=== PATIENT | male | born 1975 | race Caucasian/White ===

== ENCOUNTER 2018-12-08 23:41 | Emergency (ER) | payer SELFPAY ==
[2018-12-08] MEDS ORDERED: ASPIRIN 81 MG CHEWABLE TABLET ONE (23:56)
[2018-12-08] MEDS ORDERED: ONDANSETRON 4 MG/2 ML VIAL ONE (23:56)
[2018-12-09 00:12] LABS: Absolute Lymphocytes (CBC) 1.8 K/uL (0.7-4.9); Basophils % 0.5 % (0-1.3); Hematocrit 49.8 % (39.6-49.0); Lymphocytes % 27.1 % (15.3-44.8); MPV 9.5 fL (7.6-11.3); Protime INR 0.82; RBC Red Blood Cell Count 5.61 M/uL (4.33-5.43)
[2018-12-09 00:37] LABS: Urine Blood 2+ (NEG); Urine Glucose NEGATIVE (NEG); Urine Protein NEGATIVE (NEG)
[2018-12-09 00:59] LABS: ALT/SGPT 26 U/L (12-78); AST/SGOT 22 U/L (15-37); Albumin 3.6 g/dL (3.4-5.0); Alkaline Phosphatase 78 U/L (45-117); BUN Blood Urea Nitrogen 16 mg/dL (7-18); Bicarbonate 29 mmol/L (21-32); Bilirubin Direct < 0.1 mg/dL (0-0.2); Bilirubin Total 0.3 mg/dL (0.2-1.0); Glucose Level 89 mg/dL (74-106); Magnesium 2.2 mg/dL (1.8-2.4); NT PRO-BNP 221 pg/mL (<125); Potassium 4.2 mmol/L (3.5-5.1); Protein, Total 7.2 g/dL (6.4-8.2); Sodium Level 140 mmol/L (136-145); Troponin (Emerg Dept Use Only) < 0.02 ng/mL (0.0-0.045)
[2018-12-09] MEDS ORDERED: NA CHLORIDE 0.9% 1,000 ML ONE (01:28)
[2018-12-09] MEDS ORDERED: KETOROLAC 30 MG/ML INJ ONE (01:28)
[2018-12-09 02:08] LABS: Barbiturates NEGATIVE (NEGATIVE); Benzodiazepines NEGATIVE (NEGATIVE); Cocaine NEGATIVE (NEGATIVE); METHAMPHETAM POSITIVE (NEGATIVE); Methadone NEGATIVE (NEGATIVE); Opiates NEGATIVE (NEGATIVE); Phencyclidine NEGATIVE (NEGATIVE); THC Cannibis NEGATIVE (NEGATIVE)
--- NOTE | 2018-12-09 03:31 | EDPHYS ---
Physician Documentation [facility] Name: Peterson Ennis Age: 43 yrs Sex: Male : 1975 Arrival Date: 12/08/2018 Time: 23:42 Bed 16 Private MD: ED Physician Leo Gee HPI: 12/08 23:50 This 43 yrs old Male presents to ER via EMS with complaints of Anxiety. cp 23:50 The patient or guardian reports chest pain that is located primarily in the anterior cp chest wall, left. 23:50 Onset: today, at 22:00. The pain does not radiate. Associated signs and symptoms: cp Pertinent negatives: abdominal pain, cough, diaphoresis, dizziness, headache, lower extremity pain, lower extremity swelling, shortness of breath, syncope. The chest pain is described as a pressure. Duration: The patient or guardian reports multiple episodes, that are intermittent. Severity of pain: in the emergency department the pain has improved moderately. Historical: - Allergies: 23:35 No Known Allergies; jb4 - Home Meds: 23:35 None [Active]; jb4 - PMHx: 23:35 Anxiety; jb4 - PSHx: 23:35 None; jb4 - Immunization history:: Adult Immunizations up to date. - Social history:: Smoking status: Patient uses tobacco products, 2-3 cigarettes per day. - Ebola Screening: : No symptoms or risks identified at this time. ROS: 23:53 Constitutional: Negative for fever, poor PO intake. cp 23:53 Eyes: Negative for injury, pain, redness, and discharge. cp 23:53 ENT: Negative for drainage from ear(s), ear pain, sore throat, difficulty swallowing, difficulty handling secretions. 23:53 Cardiovascular: Positive for chest pain, Negative for edema, palpitations. 23:53 Respiratory: Negative for cough, shortness of breath, wheezing. 23:53 Abdomen/GI: Negative for abdominal pain, nausea, vomiting, and diarrhea, constipation, black/tarry stool, rectal bleeding. 23:53 Back: Negative for radiated pain. 23:53 Neuro: Negative for altered mental status, headache, numbness, syncope, weakness. 23:53 All other systems are negative. Exam: 23:55 ECG was reviewed by the Attending Physician. cp 23:58 Constitutional: The patient appears in no acute distress, alert, awake, cp non-diaphoretic, non-toxic, well developed, well nourished. 23:58 Head/Face: Normocephalic, atraumatic. cp 23:58 Eyes: Periorbital structures: appear normal, Conjunctiva: normal, no exudate, no injection, Lids and lashes: appear normal, bilaterally. 23:58 ENT: External ear(s): are unremarkable, Nose: is normal, Mouth: Lips: moist, Oral mucosa: pink and intact, moist, Posterior pharynx: is normal, airway is patent, no erythema, no exudate. 23:58 Chest/axilla: Inspection: normal, Palpation: is normal, no crepitus, no tenderness. 23:58 Cardiovascular: Rate: normal, Rhythm: regular, Pulses: Pulses are 2+ in right radial artery and left radial artery. Edema: is not appreciated, JVD: is not appreciated. 23:58 Respiratory: the patient does not display signs of respiratory distress, Respirations: cp normal, no use of accessory muscles, no retractions, no splinting, no tachypnea, labored breathing, is not present, Breath sounds: are clear throughout, no decreased breath sounds, no stridor, no wheezing. 23:58 Abdomen/GI: Inspection: abdomen appears normal, Bowel sounds: active, all quadrants, cp Palpation: abdomen is soft and non-tender, in all quadrants, rebound tenderness, is not appreciated, involuntary guarding, is not appreciated. 23:58 Back: pain, is absent, ROM is normal. 23:58 Skin: no rash present. 23:58 Neuro: Orientation: to person, place \T\ time. Mentation: is normal, Motor: moves all fours, strength is normal, Sensation: no obvious gross deficits. 12/09 03:06 ECG was reviewed by the Attending Physician. cp Vital Signs: 12/08 23:35 BP 154 / 103; Pulse 86; Resp 18; Temp 99.0(O); Pulse Ox 98% on R/A; Weight 83.91 kg jb4 (R); Height 5 ft. 10 in. (177.80 cm) (R); Pain 6/10; 12/09 00:30 BP 145 / 100; Pulse 73; Resp 19; Pulse Ox 96% on R/A; jb4 02:00 BP 142 / 104; Pulse 62; Resp 16; Pulse Ox 100% on R/A; jb4 02:45 BP 143 / 104; Pulse 67; Resp 16; Pulse Ox 100% on R/A; jb4 03:38 BP 154 / 91; Pulse 88; Resp 16; Pulse Ox 98% on R/A; jb4 12/08 23:35 Body Mass Index 26.54 (83.91 kg, 177.80 cm) 4 MDM: 12/08 23:52 Patient medically screened. cp 12/09 03:30 The patient was given aspirin in the Emergency Department. cp 03:30 Differential diagnosis: abnormal EKG, acute myocardial infarction, acute pericarditis, cp pleurisy, pneumonia, pneumothorax, stable angina, unstable angina. Data reviewed: vital signs, nurses notes, lab test result(s), EKG, radiologic studies, plain films. Test interpretation: by ED physician or midlevel provider: ECG, plain radiologic studies. ED course: VSS. Initial and repeat EKGs and troponin negative. Will discharge into custody of law enforcement. 12/08 23:43 Order name: Basic Metabolic Panel; Complete Time: 01:12 cp 12/09 01:12 Interpretation: Normal except: GFR 83; CA 8.3. cp 12/08 23:43 Order name: CBC with Diff; Complete Time: 01:12 cp 12/09 01:12 Interpretation: Normal except: RBC 5.61; HCT 49.8. cp 12/08 23:43 Order name: LFT's; Complete Time: 01:12 cp 12/08 23:43 Order name: Magnesium; Complete Time: 01:12 cp 12/08 23:43 Order name: NT PRO-BNP; Complete Time: 01:12 cp 12/08 23:43 Order name: PT-INR; Complete Time: 01:12 cp 12/08 23:43 Order name: Troponin (emerg Dept Use Only); Complete Time: 01:12 cp 12/08 23:43 Order name: XRAY Chest (1 view) cp 12/08 23:52 Order name: UDS; Complete Time: 02:40 cp 12/09 02:40 Interpretation: Normal except: METHAMPHETAMINE POSITIVE. 12/09 00:24 Order name: Urine Dipstick--Ancillary (enter results) [facility] 12/09 02:39 Order name: Troponin (emerg Dept Use Only); Complete Time: 03:29 jb4 12/09 03:29 Interpretation: Reviewed. cp 12/08 23:43 Order name: EKG; Complete Time: 23:45 cp 12/08 23:43 Order name: Cardiac monitoring; Complete Time: 00:29 cp 12/08 23:43 Order name: EKG - Nurse/Tech; Complete Time: 00:28 cp 12/08 23:43 Order name: IV Saline Lock; Complete Time: 00:27 cp 12/08 23:43 Order name: Labs collected and sent; Complete Time: 00:28 cp 12/08 23:43 Order name: O2 Per Protocol; Complete Time: 00:28 cp 12/08 23:43 Order name: O2 Sat Monitoring; Complete Time: 00: cp 12/09 02:46 Order name: EKG; Complete Time: 02:47 cp 12/09 02:46 Order name: EKG - Nurse/Tech; Complete Time: 02:54 cp EC/22 23:55 Rate is 85 beats/min. Rhythm is regular. ME interval is normal. QRS interval is normal. cp QT interval is prolonged at 392 msec. T waves are Inverted in leads II, III, aVF, V4, V5, V6. Interpreted by me. Reviewed by me. 12/09 03:06 Rate is 74 beats/min. Rhythm is regular. ME interval is normal. QRS interval is normal. cp QT interval is prolonged at 416 msec. T waves are Inverted in leads II, III, aVF, V4, V5, V6. Clinical impression: Abnormal EKG without significant change. Interpreted by me. Reviewed by me. Administered Medications: 00:00 Drug: Aspirin Chewable Tablet 324 mg Route: PO; jb4 01:03 Follow up: Response: No adverse reaction jb4 00:00 Drug: Zofran 4 mg Route: IVP; Site: left antecubital; jb4 01:03 Follow up: Response: No adverse reaction jb4 01:40 Drug: NS 0.9% 1000 ml Route: IV; Rate: 1 bolus; Site: left antecubital; jb4 02:40 Follow up: Response: No adverse reaction; IV Status: Completed infusion; IV Intake: jb4 1000ml 01:41 Drug: TORadol 30 mg Route: IVP; Site: left antecubital; jb4 02:10 Follow up: Response: No adverse reaction; Pain is decreased jb4 Disposition: 04:17 Co-signature as Attending Physician, Leo Gee MD I agree with the assessment and kdr plan of care. Disposition: 12/09/18 03:30 Discharged to Home. Impression: Chest pain, unspecified. - Condition is Stable. - Discharge Instructions: Nonspecific Chest Pain, Aspirin and Your Heart. - Medication Reconciliation Form, Thank You Letter, Antibiotic Education, Prescription Opioid Use form. - Follow up: Private Physician; When: 2 - 3 days; Reason: Recheck today's complaints. - Problem is new. - Symptoms have improved. Signatures: Dispatcher [employer] [facility] Leo Gee MD MD kdr Trace Liu PA PA Sonu Maldonado RN RN jb4 Corrections: (The following items were deleted from the chart) 01:12 01:12 Normal except: GFR 83. cp cp 03:15 02:47 TROPONIN I+C.LAB.BRZ ordered. [facility] EDAZ 03:41 03:30 12/09/2018 03:30 Discharged to Home. Impression: Chest pain, unspecified. jb4 Condition is Stable. Forms are Medication Reconciliation Form, Thank You Letter, Antibiotic Education, Prescription Opioid Use. Follow up: Private Physician; When: 2 - 3 days; Reason: Recheck today's complaints. Problem is new. Symptoms have improved. cp
--- NOTE | 2018-12-09 03:31 | ER ---
Nurse's Notes [facility] Name: Peterson Ennis Age: 43 yrs Sex: Male : 1975 Arrival Date: 12/08/2018 Time: 23:42 Bed 16 Private MD: Diagnosis: Chest pain, unspecified Presentation: 12/08 23:35 Presenting complaint: EMS states: Pt was reporting having anxiety, hyperventilating, jb4 and having chest tightness after being transported to shelter. 23:35 Transition of care: patient was not received from another setting of care. Onset of jb4 symptoms was December 08, 2018. Risk Assessment: Do you want to hurt yourself or someone else? Patient reports no desire to harm self or others. Initial Sepsis Screen: Does the patient meet any 2 criteria? No. Patient's initial sepsis screen is negative. Does the patient have a suspected source of infection? No. Patient's initial sepsis screen is negative. Care prior to arrival: None. 23:35 Method Of Arrival: EMS: [facility] jb4 23:35 Acuity: MEGAN 3 jb4 Historical: - Allergies: 23:35 No Known Allergies; jb4 - Home Meds: 23:35 None [Active]; jb4 - PMHx: 23:35 Anxiety; jb4 - PSHx: 23:35 None; jb4 - Immunization history:: Adult Immunizations up to date. - Social history:: Smoking status: Patient uses tobacco products, 2-3 cigarettes per day. - Ebola Screening: : No symptoms or risks identified at this time. Screenin:35 Abuse screen: Denies threats or abuse. Nutritional screening: No deficits noted. jb4 Tuberculosis screening: No symptoms or risk factors identified. Fall Risk None identified. Assessment: 23:35 General: Appears in no apparent distress. uncomfortable, Behavior is cooperative, jb4 anxious. Pain: Complains of pain in chest Pain does not radiate. Pain currently is 6 out of 10 on a pain scale. Neuro: Level of Consciousness is awake, alert, obeys commands, Oriented to person, place, time, situation. Cardiovascular: Patient's skin is warm and dry. Respiratory: Airway is patent Respiratory effort is even, unlabored, Respiratory pattern is regular, symmetrical. GI: No deficits noted. No signs and/or symptoms were reported involving the gastrointestinal system. : No deficits noted. No signs and/or symptoms were reported regarding the genitourinary system. EENT: No deficits noted. No signs and/or symptoms were reported regarding the EENT system. Derm: Skin is intact, Skin is pink, warm \T\ dry. Musculoskeletal: Circulation, motion, and sensation intact. Range of motion: intact in all extremities. 12/09 00:45 Reassessment: Patient appears in no apparent distress at this time. Patient and/or jb4 family updated on plan of care and expected duration. Pain level reassessed. Patient is alert, oriented x 3, equal unlabored respirations, skin warm/dry/pink. 02:08 Reassessment: Patient appears in no apparent distress at this time. Patient and/or jb4 family updated on plan of care and expected duration. Pain level reassessed. Patient is alert, oriented x 3, equal unlabored respirations, skin warm/dry/pink. 03:02 Reassessment: Patient appears in no apparent distress at this time. Patient and/or jb4 family updated on plan of care and expected duration. Pain level reassessed. Patient is alert, oriented x 3, equal unlabored respirations, skin warm/dry/pink. 03:38 Reassessment: Patient appears in no apparent distress at this time. Patient and/or jb4 family updated on plan of care and expected duration. Pain level reassessed. Patient is alert, oriented x 3, equal unlabored respirations, skin warm/dry/pink. Pt verbalized understanding of d/c and follow up instructions. Escorted out in Law Enforcement custody. Vital Signs: 12/08 23:35 BP 154 / 103; Pulse 86; Resp 18; Temp 99.0(O); Pulse Ox 98% on R/A; Weight 83.91 kg jb4 (R); Height 5 ft. 10 in. (177.80 cm) (R); Pain 6/10; 12/09 00:30 BP 145 / 100; Pulse 73; Resp 19; Pulse Ox 96% on R/A; jb4 02:00 BP 142 / 104; Pulse 62; Resp 16; Pulse Ox 100% on R/A; jb4 02:45 BP 143 / 104; Pulse 67; Resp 16; Pulse Ox 100% on R/A; jb4 03:38 BP 154 / 91; Pulse 88; Resp 16; Pulse Ox 98% on R/A; jb4 12/08 23:35 Body Mass Index 26.54 (83.91 kg, 177.80 cm) jb4 ED Course: 12/08 23:35 Arm band placed on right wrist. EKG completed in triage. Results shown to MD. jb4 23:35 Patient has correct armband on for positive identification. Placed in gown. Bed in low jb4 position. Call light in reach. Side rails up X 1. Pulse ox on. NIBP on. 23:42 Patient arrived in ED. ds1 23:42 Trace Liu PA is PHCP. cp 23:42 Leo Gee MD is Attending Physician. cp 23:46 Sonu Bejarano, MADDISON is Primary Nurse. jb4 23:48 Initial lab(s) drawn, by ED staff, sent to lab. Inserted saline lock: 20 gauge in left jb4 antecubital area, using aseptic technique. Blood collected. 23:49 Triage completed. jb4 12/09 00:58 XRAY Chest (1 view) In Process Unspecified. EDMS 03:38 No provider procedures requiring assistance completed. IV discontinued, intact, jb4 bleeding controlled, No redness/swelling at site. Pressure dressing applied. Administered Medications: 00:00 Drug: Aspirin Chewable Tablet 324 mg Route: PO; jb4 01:03 Follow up: Response: No adverse reaction jb4 00:00 Drug: Zofran 4 mg Route: IVP; Site: left antecubital; jb4 01:03 Follow up: Response: No adverse reaction jb4 01:40 Drug: NS 0.9% 1000 ml Route: IV; Rate: 1 bolus; Site: left antecubital; jb4 02:40 Follow up: Response: No adverse reaction; IV Status: Completed infusion; IV Intake: jb4 1000ml 01:41 Drug: TORadol 30 mg Route: IVP; Site: left antecubital; jb4 02:10 Follow up: Response: No adverse reaction; Pain is decreased jb4 Intake: 02:40 IV: 1000ml; Total: 1000ml. jb4 Outcome: 03:30 Discharge ordered by MD. cp 03:38 Discharged to Law Enforcement jb4 03:38 Condition: stable 03:38 Discharge instructions given to patient, Instructed on discharge instructions, follow up and referral plans. Demonstrated understanding of instructions, follow-up care. 03:41 Patient left the ED. jb4 Signatures: Dispatcher [employer] EDLigia Castro ds1 Trace Liu PA PA cp Bryson, James, RN RN jb4
[2018-12-09 04:03] VITALS: BP 154/91; O2SAT 98
--- NOTE | 2018-12-09 07:13 | EKG ---
Test Date: 2018-12-08 Test Time: 23:48:58 Bank Messenger: DARIN MEASUREMENT RESULTS: Intervals: Rate: 86 NV: 128 QRSD: 94 QT: 384 QTc: 459 [place]: P: 53 NV: 128 QRS: 11 T: -53 INTERPRETIVE STATEMENTS: Normal sinus rhythm Voltage criteria for left ventricular hypertrophy ST & T wave abnormality, consider inferolateral ischemia Abnormal ECG Compared to ECG 06/04/1998 12:37:00 Left ventricular hypertrophy now present ST (T wave) deviation now present Possible ischemia now present Electronically Signed On 12-09-18 07:13:08 CDT by Yahir Thomson
--- NOTE | 2018-12-09 07:13 | EKG ---
Test Date: 2018-12-09 Test Time: 02:51:27 [employer] Motor Vehicle: ABHISHEK MEASUREMENT RESULTS: Intervals: Rate: 74 MN: 138 QRSD: 98 QT: 416 QTc: 461 [place]: P: 55 MN: 138 QRS: 9 T: -39 INTERPRETIVE STATEMENTS: Normal sinus rhythm Moderate voltage criteria for LVH, may be normal variant T wave abnormality, consider inferolateral ischemia Prolonged QT Abnormal ECG Compared to ECG 12/08/2018 23:48:58 T-wave abnormality now present Prolonged QT interval now present ST (T wave) deviation no longer present Possible ischemia still present Electronically Signed On 12-09-18 07:12:58 CDT by Yahir Thomson
--- NOTE | 2018-12-09 07:54 | RAD REPORT ---
EXAM DESCRIPTION: Quin Single View12/09/2018 12:58 am CLINICAL HISTORY: Chest pain COMPARISON: none FINDINGS: The lungs appear clear of acute infiltrate. The heart is normal size. Mild prominence of mediastinum IMPRESSION: Mild prominence of the mediastinum. This may simply be secondary to vessels, mediastinal fat and or lymphadenopathy. PA and lateral chest series recommended further evaluation
== END 2018-12-09 03:41 | disposition home or self-care (01) ==
LOC: ER 23:41
DX: R07.9 Chest pain, unspecified (principal); F17.210 Nicotine dependence, cigarettes, uncomplicated
CPT/HCPCS: 36415; 71045; 80048; 80076; 80307; 81003; 83735; 83880; 84484; 85025; 85610; 93005; 96361; 96374; 96375; 99284; J2405; J7030

== ENCOUNTER 2019-10-28 23:27 | Emergency (ER) | payer SELFPAY ==
[2019-10-29] MEDS ORDERED: LIDOCAINE 1% MPF 30 ML VIAL ONE (01:42)
--- NOTE | 2019-10-29 02:23 | EDPHYS ---
Physician Documentation [facility] Name: Peterson Ennis Age: 43 yrs Sex: Male : 1975 Arrival Date: 10/28/2019 Time: 23:31 Bed 11 Private MD: ED Physician Nigel Beal HPI: 10/28 01:58 This 43 yrs old Male presents to ER via Ambulatory with complaints of jmm Laceration To Hand. 02:14 The patient has a laceration. jmm 02:15 Onset: The symptoms/episode began/occurred acutely, just prior to arrival. Associated jm signs and symptoms: Pertinent negatives: loss of consciousness. This is a 43 year old male with a history of anxiety that presents to the ED with complaints of a laceration to his right hand which occurred after breaking a glass jug. Denies other injury. Unsure of tetanus immunizations status. . Historical: - Allergies: 00:03 No Known Allergies; sg - PMHx: 00:03 Anxiety; sg - PSHx: 00:03 None; sg - Immunization history:: Adult Immunizations not up to date, Last tetanus immunization: not indicated for visit today. - Social history:: Smoking status: Patient denies any tobacco usage or history of. ROS: 02:15 Constitutional: Negative for fever, chills, and weight loss, Cardiovascular: Negative jmm for chest pain, palpitations, and edema, Respiratory: Negative for shortness of breath, cough, wheezing, and pleuritic chest pain. 02:15 MS/extremity: Positive for laceration. 02:15 All other systems are negative. Exam: 02:15 Constitutional: This is a well developed, well nourished patient who is awake, alert, jmm and in no acute distress. Head/Face: atraumatic. Eyes: EOMI, no conjunctival erythema appreciated ENT: Moist Mucus Membranes Neck: Trachea midline, Supple Chest/axilla: Normal chest wall appearance and motion. Cardiovascular: Regular rate and rhythm. No edema appreciated Respiratory: Normal respirations, no respiratory distress appreciated Abdomen/GI: Non distended, soft Back: Normal ROM 02:15 Musculoskeletal/extremity: weakness on extension of the right 4th finger, tendon was not visualized. 02:15 Skin: 3 cm laceration noted to the dorsal surface of the right hand. 02:15 Neuro: Orientation: is normal, Mentation: is normal, Memory: is normal. 02:15 Psych: Behavior/mood is pleasant, cooperative. Vital Signs: 10/27 23:36 BP 146 / 88; Pulse 87; Resp 18; Temp 97.7; Pulse Ox 100% on R/A; Pain 10/10; sg Procedures: 10/28 02:19 Splinting: Splint applied to right hand using volar splint of the right hand. applied jmm by tech. Examined by me, post splint application: neurovascular intact, 2+ distal pulses palpable, brisk capillary refill noted, Patient tolerated well. Laceration: 02:18 Wound Repair of 3cm ( 1.2in ) subcutaneous laceration to right hand. Distal jmm neuro/vascular/tendon intact. Anesthesia: Local anesthetic administered with 5 mls of Lido/Marcaine. Wound prep: Moderate cleansing with betadine by me. Skin closed with 6 4-0 Prolene using simple sutures and sterile technique. Patient tolerated well. MDM: 01:26 Patient medically screened. tw4 02:18 Data reviewed: vital signs, nurses notes. ED course: PE findings concerning for tendon jmm injury. Patient advised to follow up with hand surgery for further evaluation. Patient is otherwise given strict return precautions. Patient understood and agrees with the plan of care. . 02:20 Counseling: I had a detailed discussion with the patient and/or guardian regarding: the jmm historical points, exam findings, and any diagnostic results supporting the discharge/admit diagnosis, radiology results, the need for outpatient follow up, to return to the emergency department if symptoms worsen or persist or if there are any questions or concerns that arise at home. 10/27 23:36 Order name: XRAY Hand RIGHT 3 View sg Administered Medications: 02:45 Drug: Tetanus-Diphtheria Toxoid Adult 0.5 ml {[place]: [employer]. Exp: sg 06/02/2021. Lot #: [id number]. } Route: IM; Site: left deltoid; Disposition: 10/29/19 02:22 Discharged to Home. Impression: Laceration of the right hand . - Condition is Stable. - Discharge Instructions: Laceration Care, Adult. - Medication Reconciliation Form, Thank You Letter, Antibiotic Education, Prescription Opioid Use form. - Follow up: Eulogio Reid MD; When: 2 - 3 days; Reason: Recheck today's complaints, Continuance of care, Re-evaluation by your physician. Addendum: 10/30/2019 07:49 Co-signature as Attending Physician, Nigel Beal MD I agree with the assessment and t w4 plan of care. Signatures: Dispatcher [employer] EDRigoberto Bergeron, RN RN sg Julio Cesar Palma, [place] PA Nigel Hill MD MD tw4 Corrections: (The following items were deleted from the chart) 10/28 03:39 02:22 10/29/2019 02:22 Discharged to Home. Impression: Laceration of the right hand . sg Condition is Stable. Forms are Medication Reconciliation Form, Thank You Letter, Antibiotic Education, Prescription Opioid Use. Follow up: Eulogio Reid; When: 2 - 3 days; Reason: Recheck today's complaints, Continuance of care, Re-evaluation by your physician. quintin
--- NOTE | 2019-10-29 02:23 | ER ---
Nurse's Notes [facility] Name: Peterson Ennis Age: 43 yrs Sex: Male : 1975 Arrival Date: 10/28/2019 Time: 23:31 Bed 11 Private MD: Diagnosis: Laceration of the right hand Presentation: 10/27 23:36 Acuity: MEGAN 4 sg 23:36 Chief complaint: Patient states: I was moving a glass container when it became sg unbalanced and fell causing it to break and the piece of glass sliced the back of my hand open. Coronavirus screen: Proceed with normal triage. Ebola Screen: Patient negative for fever greater than or equal to 101.5 degrees Fahrenheit, and additional compatible Ebola Virus Disease symptoms Patient denies exposure to infectious person. Patient denies travel to an Ebola-affected area in the 21 days before illness onset. No symptoms or risks identified at this time. Complicating Factors: There are no complicating factors for this patient. Initial Sepsis Screen: Does the patient meet any 2 criteria? No. Patient's initial sepsis screen is negative. Does the patient have a suspected source of infection? No. Patient's initial sepsis screen is negative. Risk Assessment: Do you want to hurt yourself or someone else? Patient reports no desire to harm self or others. Onset of symptoms was October 29, 2019. Care prior to arrival: None. 23:36 Method Of Arrival: Ambulatory sg Historical: - Allergies: 10/28 00:03 No Known Allergies; sg - PMHx: 00:03 Anxiety; sg - PSHx: 00:03 None; sg - Immunization history:: Adult Immunizations not up to date, Last tetanus immunization: not indicated for visit today. - Social history:: Smoking status: Patient denies any tobacco usage or history of. Screenin:30 Abuse screen: Denies threats or abuse. Denies injuries from another. Nutritional sg screening: No deficits noted. Tuberculosis screening: No symptoms or risk factors identified. Never had TB. Fall Risk None identified. Assessment: 01:30 General: Appears in no apparent distress. well groomed, well developed, well nourished, sg Behavior is calm, cooperative, appropriate for age. Pain: Complains of pain in right hand. 01:30 Neuro: Level of Consciousness is awake, alert, obeys commands, Oriented to person, sg place, time, Speech is normal, Facial symmetry appears normal. Cardiovascular: Capillary refill is brisk in bilateral fingers Patient's skin is warm and dry. Chest pain is denied. Respiratory: Airway is patent Respiratory effort is even, unlabored, Respiratory pattern is regular, symmetrical. GI: Abdomen is round non-distended. : No signs and/or symptoms were reported regarding the genitourinary system. EENT: No signs and/or symptoms were reported regarding the EENT system. Derm: Skin is pink, warm \T\ dry. Musculoskeletal: Circulation, motion, and sensation intact. Range of motion: intact in all extremities, Swelling present in dorsum of right hand Reports pain in dorsum of right hand. Injury Description: Laceration sustained to dorsum of right hand is contaminated, superficial, 0.5 to 2.5 cm long, not bleeding, was sustained 30-60 minutes ago. is bleeding a small amount. 03:00 Reassessment: Patient appears in no apparent distress at this time. Patient is alert, sg oriented x 3, equal unlabored respirations, skin warm/dry/pink. v/o for a velcro splint to be applied for pt, velcro splint applied at this time. Vital Signs: 10/27 23:36 BP 146 / 88; Pulse 87; Resp 18; Temp 97.7; Pulse Ox 100% on R/A; Pain 10/10; sg ED Course: 23:31 Patient arrived in ED. ds1 23:36 Triage completed. sg 23:36 Arm band placed on. sg 23:55 Wound care: to laceration located on dorsum of right hand was cleaned with Hibiclens, sg dressed with Patient tolerated well. 10/28 01:26 Nigel Beal MD is Attending Physician. tw4 01:29 XRAY Hand RIGHT 3 View In Process Unspecified. EDMS 01:30 Patient has correct armband on for positive identification. Bed in low position. Call sg light in reach. Pulse ox on. NIBP on. 01:36 Julio Cesar Palma PA is PHCP. jmm 02:21 Eulogio Reid MD is Referral Physician. jm 02:40 Rigoberto Starr RN is Primary Nurse. sg 03:30 No provider procedures requiring assistance completed. Patient did not have IV access sg during this emergency room visit. 03:30 Velcro wrist splint applied to right wrist. 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 Exp: adrianne 06/02/2021. Lot #: [id number]. } Route: IM; Site: left deltoid; Outcome: 02:22 Discharge ordered by . quintin 03:30 Discharged to home ambulatory, with friend. sg 03:30 Condition: good 03:30 Instructed on discharge instructions, follow up and referral plans. safety practices, wound care, splint care 03:39 Patient left the ED. sg Signatures: Dispatcher [employer] EDMS Rigoberto Starr RN RN Julio Cesar Villanueva PA PA jmm Sanford, Demi ds1 Nigel Beal MD MD tw4
[2019-10-29] MEDS ORDERED: TETANUS & DIPHTHERIA TOX,ADULT 0.5 ML VIAL ONE (02:54)
[2019-10-29] MEDS ORDERED: HYDROCODONE/APAP 5/325 MG TAB ONE (03:06)
[2019-10-29 03:56] VITALS: BP 146/88; TEMP 97.7; O2SAT 100
--- NOTE | 2019-10-29 12:00 | RAD REPORT ---
EXAM DESCRIPTION: RAD - Hand Right 3 View - 10/29/2019 1:28 am CLINICAL HISTORY: Right hand pain status post injury FINDINGS: A 6 millimeter in density lies along the dorsal aspect of the upper wrist having the appea nils of a chronic bony density. A foreign body is doubtful and should be correlated clinically. On the oblique view there does appear to be a laceration within the soft tissues in the region of the fifth MTP joint No acute fracture or dislocation
== END 2019-10-29 03:39 | disposition home or self-care (01) ==
LOC: ER 23:27
PROC: 0JQJ0ZZ Repair Right Hand Subcutaneous Tissue and Fascia, Open Approach (ICD-10-PCS; principal; 2019-10-29)
DX: S61.411A Laceration without foreign body of right hand, initial encounter (principal); W25.XXXA Contact with sharp glass, initial encounter; Y93.9 Activity, unspecified; Y92.9 Unspecified place or not applicable; Z23 Encounter for immunization
CPT/HCPCS: 90471; 90714; 99284